=== PATIENT | female | born 1965 | race Caucasian/White ===

== ENCOUNTER 2016-08-18 18:23 | Emergency (ER) | payer OTHER ==
[2016-08-18 18:33] VITALS: RESP 18; TEMP 98.1
[2016-08-18] MEDS ORDERED: HYDROCODONE/APAP 5/325 TAB ONE ×2 (18:48)
[2016-08-18] MEDS ORDERED: OXYCODONE/APAP 5/325 TAB PO ONE (18:49)
[2016-08-18] MEDS ORDERED: ONDANSETRON DISINTEGRATING 4 MG TAB PO ONE (18:53)
--- NOTE | 2016-08-18 19:09 | EDPHY ---
H & P Stated Complaint: Possible shingles on lower back;also has sore L upper leg Time Seen by Provider: 08/18/16 18:38 HPI/ROS: CHIEF COMPLAINT: Vesicular rash left gluteal area HISTORY OF PRESENT ILLNESS: The patient presents to the emergency department with a vesicular rash to her left gluteal area x2 days. The patient denies prior history of these symptoms. She has no reported antibiotic use. She has no prior history of shingles. The patient did not receive the shingles vaccination. The patient denies additional infectious symptoms. She specifically has no complaints of fever, cough or congestion. The rash is quite painful in nature. The patient denies significant past medical history. REVIEW OF SYSTEMS: A comprehensive 10 point review of systems is otherwise negative aside from elements mentioned in the history of present illness. Source: Patient Exam Limitations: No limitations - Personal History LMP (Females 10-55): Post Menopausal Current Tetanus Diphtheria and Acellular Pertussis (TDAP): Yes - Medical/Surgical History Hx Asthma: No Hx Chronic Respiratory Disease: No Hx Diabetes: No Hx Cardiac Disease: No Hx Renal Disease: No Hx Cirrhosis: No Hx Alcoholism: No Hx HIV/AIDS: No Hx Splenectomy or Spleen Trauma: No Other PMH: HTN - Social History Smoking Status: Never smoked - Physical Exam Exam: General Appearance: Alert, no distress Eyes: Pupils equal and round no pallor or injection ENT, Mouth: Mucous membranes moist Respiratory: There are no retractions, lungs are clear to auscultation Cardiovascular: Regular rate and rhythm Gastrointestinal: Abdomen is soft and nontender, no masses, bowel sounds normal Neurological: A&O, normal motor function, normal sensory exam, normal cranial nerves Skin: Warm and dry, no rashes Musculoskeletal: Neck is supple nontender Extremities: Fascicular rash noted primarily to left buttock consistent with varicella Constitutional: Initial Vital Signs Temperature (C) 36.7 C 08/18/16 18:25 Heart Rate 88 08/18/16 18:25 Respiratory Rate 18 08/18/16 18:25 Blood Pressure 146/88 H 08/18/16 18:25 O2 Sat (%) 94 08/18/16 18:25 O2 Delivery Mode Room Air Allergies/Adverse Reactions: No Known Allergies Allergy (Verified 08/18/16 18:29) Home Medications: Medication Instructions Recorded Metoprolol Tartrate [Lopressor 25 25 mg PO 08/18/16 mg (*)] Valacyclovir HCl [Valtrex] 1,000 mg PO TID #21 tab 08/18/16 oxyCODONE/APAP 5/325 [Percocet 1 - 2 tab PO Q6-8PRN PRN #20 tab 08/18/16 5/325 (RX)] predniSONE [prednisone 20mg (RX)] 3 tab PO DAILY #15 tab 08/18/16 Medical Decision Making ED Course/Re-evaluation: The patient presents to the ED with a typical shingles exacerbation. There is no evidence of an abscess or pilonidal cyst. She will be started on Percocet, Valtrex and prednisone for treatment of her shingles. She is advised to return to the emergency department for markedly worsening symptoms, rash that is becoming bilateral, fever, fluctuance or other concerns. The patient should follow up with her primary care provider for a recheck in the next week. Differential Diagnosis: Differential diagnosis considered includes cellulitis, abscess, shingles, perirectal abscess - Data Points Medications Given: Discontinued Medications Ondansetron HCl (Zofran Odt) 4 mg PO EDNOW ONE Stop: 08/18/16 18:54 Last Admin: 08/18/16 18:56 Dose: 4 mg Oxycodone/Acetaminophen (Percocet 5/325) 2 tab PO EDNOW ONE Stop: 08/18/16 18:50 Last Admin: 08/18/16 18:53 Dose: 2 tab Departure - Departure Disposition: Home, Routine, Self-Care Clinical Impression: Shingles Qualifiers: Herpes zoster complications: without complications Qualifier Code: (B02.9) Zoster without complications Condition: Good Instructions: Shingles (ED) Additional Instructions: 1. Take Ibuprofen or Motrin 600 mg by mouth three times a day. 2. Percocet as needed for severe pain 3. Take Valtrex and prednisone as directed for next week 4. Please follow-up with your primary care provider for a recheck within the next week. 5. Please return to the ED for worsening rash, fever, increasing pain or other concerns. Referrals: Elham Shaikh MD [Primary Care Provider] - As per Instructions
[2016-08-18 19:19] VITALS: BP 103/62; PULSE 87; O2SAT 96
== END 2016-08-18 19:19 | disposition home or self-care (01) ==
DX: B02.9 Zoster without complications (principal); I10 Essential (primary) hypertension